=== PATIENT | female | born 1950 | race Caucasian/White ===

== ENCOUNTER → 2017-04-12 | Outpatient (CLI) | payer MEDICARE ==
--- NOTE | 2017-04-12 10:02 | PCVCIMAG ---
APPROVED REPORT Study performed: 04/12/2017 08:34:46 EXAM: Comprehensive 2D, Doppler, and color-flow Echocardiogram Patient Location: Echo lab Status: routine BSA: 1.98 HR: 55 bpmBP: 128/78 mmHg Rhythm: NSR Other Information Study Quality: Good Indications Atrial Fibrillation CAD Hypertension/HDD S/P COR STENT 2D Dimensions LVEF(%): 78.97 (>50%) IVSd: 9.36 (7-11mm)LVOT Diam: 20.02 (18-24mm) LVDd: 39.97 mm PWd: 9.28 (7-11mm)Ascending Ao: 29.01 (22-36mm) LVDs: 21.17 (25-40mm) Left Atrium: 35.85 (27-40mm) Aortic Root: 26.46 mm LV Single Plane 4CH: 60.92 % LV Single Plane 2CH: 66.81 %Zhong's LVEF: 63.87 % Biplane EF: 64.3 % Volumes Left Atrial Volume (Systole) Single Plane 4CH: 83.40 mLSingle Plane 2CH: 80.12 mL Biplane LA Volume: 87.00 mLLA ESV Index: 44.00 mL/m2 Aortic Valve AoV Peak [place]uleman.: 1.51 m/s AO Peak Gr.: 9.49 mmHgLVOT Max P.14 mmHg LVOT Max V: 0.89 m/s MAX Vmax: 1.85 cm2 AI Vmax: 4.38 m/s AI [place]: 1.80 m/s2 AI PHT: 707.52 ms Mitral Valve E/A Ratio: 1.4 MV Decel. Time: 156.48 ms MV E Max Suleman.: 1.00 m/s MV A Suleman.: 0.69 m/s IVRT: 93.43 ms TDI E/Lateral E': 9.09E/Medial E': 14.29 Medial E' Suleman.: 0.07 m/s Lateral E' Suleman.: 0.11 m/s Pulmonary Valve PV Peak Suleman.: 0.97 m/sPV Peak Gr.: 3.79 mmHg Pulmonary Vein P Vein S: 0.60 m/sP Vein A: 0.26 m/s P Vein D: 0.58 m/sP Vein A Dur.: 141.9 msec P Vein S/D Ratio: 1.03 Tricuspid Valve TR Peak Suleman.: 2.45 m/s TR Peak Gr.: 23.98 mmHg TV Vmax: 0.65 m/sPA Pressure: 31.00 mmHg Left Ventricle The left ventricle is normal size. There is normal LV segmental wall motion. There is normal left ventricular wall thickness. Left ventricular systolic function is normal. The left ventricular ejection fraction is within the normal range. LVEF is 60-65%. Right Ventricle The right ventricle is normal size. The right ventricular systolic function is normal. Atria The left atrium size is normal. The right atrium size is normal. Aortic Valve The Aortic valve is mildly sclerotic. Mild aortic regurgitation. There is no aortic valvular stenosis. Mitral Valve The mitral valve is normal in structure. Trace mitral regurgitation. No evidence of mitral valve stenosis. Tricuspid Valve The tricuspid valve is normal in structure. Mild tricuspid regurgitation with a PA pressure of 31 mmHg. Pulmonic Valve The pulmonary valve is normal in structure. There is no pulmonic valvular regurgitation. Great Vessels The aortic root is normal in size. The ascending aorta is normal in size. IVC is normal in size and collapses with >50% inspiration Pericardium There is no pericardial effusion. There is no pleural effusion. <Conclusion> The left ventricle is normal size. Left ventricular systolic function is normal. The right ventricle is normal size. The left atrium size is normal. The Aortic valve is mildly sclerotic. Mild aortic regurgitation. Trace mitral regurgitation. Mild tricuspid regurgitation with a PA pressure of 31 mmHg.
== END | disposition home or self-care (01) ==
LOC: PCVCIMAG 08:29
PROVIDERS: ATTEND Internal Medicine Cardiovascular Disease
DX: I08.3 Combined rheumatic disorders of mitral, aortic and tricuspid valves (principal); I25.10 Atherosclerotic heart disease of native coronary artery without angina pectoris; I48.0 Paroxysmal atrial fibrillation; I10 Essential (primary) hypertension; E78.5 Hyperlipidemia, unspecified; Z95.5 Presence of coronary angioplasty implant and graft; Z79.82 Long term (current) use of aspirin; Z87.891 Personal history of nicotine dependence
CPT/HCPCS: 93306

== ENCOUNTER → 2017-09-22 | Outpatient (CLI) | payer MEDICARE ==
[~2017-09-22] MED LIST: REGADENOSON 0.4 MG/5 ML DISP.SYRIN. IV
== END | disposition home or self-care (01) ==
LOC: PCVCIMAG 08:00
DX: I25.10 Atherosclerotic heart disease of native coronary artery without angina pectoris (principal); I48.0 Paroxysmal atrial fibrillation; I10 Essential (primary) hypertension; E78.00 Pure hypercholesterolemia, unspecified; Z87.891 Personal history of nicotine dependence; Z79.899 Other long term (current) drug therapy
CPT/HCPCS: 78452; 93017; A9500; G0463; J2785

== ENCOUNTER → 2018-03-23 | Outpatient (CLI) | payer MEDICARE | END | disposition home or self-care (01) | LOC: PCVCCLINIC 10:12 | DX: I48.91 Unspecified atrial fibrillation (principal); I25.10 Atherosclerotic heart disease of native coronary artery without angina pectoris; I10 Essential (primary) hypertension; E78.00 Pure hypercholesterolemia, unspecified; Z79.82 Long term (current) use of aspirin | CPT/HCPCS: 93005; G0463 ==

== ENCOUNTER → 2018-09-25 | Outpatient (CLI) | payer MEDICARE ==
--- NOTE | 2018-09-25 10:54 | PCVCIMAG ---
APPROVED REPORT Study performed: 09/25/2018 09:10:28 EXAM: Comprehensive 2D, Doppler, and color-flow Echocardiogram Patient Location: Echo lab Room #: 2Status: routine BSA: 1.97 HR: 62 bpmBP: 116/82 mmHg Rhythm: NSR Other Information Study Quality: Good Risk Factors: Cardiac Risk Factors: HTN, Hyperlipidemia Indications Atrial Fibrillation CAD Hypertension/HDD S/P CABG 2D Dimensions IVSd: 9.61 (7-11mm)LVOT Diam: 19.20 (18-24mm) LVDd: 45.70 mm PWd: 7.82 (7-11mm)Ascending Ao: 29.34 (22-36mm) LVDs: 24.95 (25-40mm) Left Atrium: 28.97 (27-40mm) Aortic Root: 29.02 mm LV Single Plane 4CH: 58.40 % LV Single Plane 2CH: 59.65 % Biplane EF: 59.2 % Volumes Left Atrial Volume (Systole) Single Plane 4CH: 85.86 mLSingle Plane 2CH: 40.35 mL Biplane LA Volume: 61.00 mLLA ESV Index: 31.00 mL/m2 Aortic Valve AoV Peak Suleman.: 1.45 m/s AO Peak Gr.: 8.38 mmHgLVOT Max P.69 mmHg LVOT Max V: 0.96 m/s MAX Vmax: 1.92 cm2 AI Vmax: 4.38 m/s AI [place]: 2.12 m/s2 AI PHT: 600.59 ms Mitral Valve E/A Ratio: 1.2 MV Decel. Time: 158.90 ms MV E Max Suleman.: 1.16 m/s MV A Suleman.: 1.00 m/s TDI E/Lateral E': 19.33E/Medial E': 16.57 Medial E' Suleman.: 0.07 m/s Lateral E' Suleman.: 0.06 m/s Pulmonary Valve PV Peak Suleman.: 0.99 m/sPV Peak Gr.: 3.92 mmHg Pulmonary Vein P Vein S: 0.65 m/sP Vein A: 0.37 m/s P Vein D: 0.39 m/sP Vein A Dur.: 110.7 msec P Vein S/D Ratio: 1.67 Tricuspid Valve TR Peak Suleman.: 2.31 m/s TR Peak Gr.: 21.36 mmHg TV Vmax: 0.66 m/sPA Pressure: 28.00 mmHg Left Ventricle The left ventricle is normal size. There is normal LV segmental wall motion. There is normal left ventricular wall thickness. Left ventricular systolic function is normal. The left ventricular ejection fraction is within the normal range. LVEF is 55-60%. Grade I - abnormal relaxation pattern. Right Ventricle The right ventricle is normal size. The right ventricular systolic function is normal. Atria The left atrium size is normal. The right atrium size is normal. Aortic Valve Aortic valve is trileaflet. Mild aortic valve sclerosis. Mild aortic regurgitation. There is no aortic valvular stenosis. Mitral Valve The mitral valve is normal in structure. There is no mitral valve regurgitation noted. No evidence of mitral valve stenosis. Tricuspid Valve The tricuspid valve is normal in structure. Trace tricuspid regurgitation with a PA pressure of 28 mmHg. Pulmonic Valve The pulmonary valve is normal in structure. There is no pulmonic valvular regurgitation. Great Vessels The aortic root is normal in size. The ascending aorta is normal in size. Aortic arch is normal in caliber. IVC is normal in size and collapses >50% with inspiration. Pericardium There is no pericardial effusion. There is no pleural effusion. <Conclusion> The left ventricle is normal size. There is normal left ventricular wall thickness. Left ventricular systolic function is normal. The right ventricle is normal size. The left atrium size is normal. Mild aortic valve sclerosis. Mild aortic regurgitation. The mitral valve is normal in structure. Trace tricuspid regurgitation with a PA pressure of 28 mmHg.
== END | disposition home or self-care (01) ==
LOC: PCVCIMAG 12:05
PROVIDERS: ATTEND Internal Medicine Cardiovascular Disease
DX: I35.1 Nonrheumatic aortic (valve) insufficiency (principal); I48.0 Paroxysmal atrial fibrillation; I25.10 Atherosclerotic heart disease of native coronary artery without angina pectoris; I10 Essential (primary) hypertension; E78.00 Pure hypercholesterolemia, unspecified; E78.5 Hyperlipidemia, unspecified; Z87.891 Personal history of nicotine dependence; Z95.1 Presence of aortocoronary bypass graft
CPT/HCPCS: 93005; 93306; G0463

== ENCOUNTER → 2019-03-26 | Outpatient (CLI) | payer MEDICARE | END | disposition home or self-care (01) | LOC: PCVCCLINIC 14:07 | PROVIDERS: ATTEND Internal Medicine | DX: I25.10 Atherosclerotic heart disease of native coronary artery without angina pectoris (principal); I48.0 Paroxysmal atrial fibrillation; I10 Essential (primary) hypertension; E78.00 Pure hypercholesterolemia, unspecified; Z79.899 Other long term (current) drug therapy; Z79.82 Long term (current) use of aspirin; Z87.891 Personal history of nicotine dependence; Z72.89 Other problems related to lifestyle | CPT/HCPCS: 93005; G0463 ==